=== PATIENT | female | born 1945 | race Caucasian/White ===

== ENCOUNTER 2018-04-12 13:07 | Emergency (ER) | payer OTHER ==
[~2018-04-12] VITALS: Ht 170.2 cm; Wt 100.0 kg
[2018-04-12 13:14] VITALS: Ht 170.2 cm; Wt 100.0 kg
[2018-04-12] MEDS ORDERED: METOPROLOL TART50 MG PO (13:16)
[2018-04-12] MEDS ORDERED: TACROLIMUS ANHYD1 MG PO (13:16)
[2018-04-12] MEDS ORDERED: PREDNISONE10 MG PO (13:17)
[2018-04-12] MEDS ORDERED: MYFORTIC180 MG PO (13:17)
[2018-04-12] MEDS ORDERED: UROCIT-K10 MEQ PO (13:17)
[2018-04-12] MEDS ORDERED: VITAMIN D2000 UNIT PO (13:17)
[2018-04-12] MEDS ORDERED: LEXAPRO10 MG (13:18)
[2018-04-12] MEDS ORDERED: TRAZODONE HCL150 MG PO (13:18)
[2018-04-12] MEDS ORDERED: MAG 6464 MG PO (13:19)
[2018-04-12] MEDS ORDERED: VITAMIN B-6100 MG PO (13:19)
[2018-04-12 13:50] LABS: BASOPHILS 0.1 % (0-2); EOSINOPHILS 0.2 % (0-7); HEMATOCRIT 40.7 % (36.0-48.0); HEMOGLOBIN 13.7 g/dL (12-16); IMMATURE GRANULOCYTES 0.3 % (0-5); LYMPHOCYTES 11.3 % (15-50); MCH 30.1 pg (26.0-34.0); MCHC 33.7 g/dL (31.0-37.0); MCV 89.5 fL (80.0-100.0); MEAN PLATELET VOLUME 11.6 fL (7.4-10.4); MONOCYTES 7.9 % (2-11); NEUTROPHILS 80.2 % (40-80); RBC 4.55 10x6/uL (4.00-5.40); RDW 13.1 % (11.5-14.5); WBC 11.5 10x3/uL (4.8-10.8)
[2018-04-12 14:09] LABS: ALBUMIN 2.9 g/dL (3.4-5.0); ANION GAP 17.9 mmol/L (8-16); BILIRUBIN - TOTAL 0.6 mg/dL (0.2-1.3); CALCIUM 8.2 mg/dL (8.5-10.1); CARBON DIOXIDE 23.9 mmol/L (21.0-32.0); CREATININE - SERUM 6.7 mg/dL (0.6-1.3); POTASSIUM - SERUM 4.8 mmol/L (3.5-5.1); PROTEIN - SERUM 6.6 g/dL (6.4-8.2)
[2018-04-12 14:17] LABS: PLATELET COUNT 142 10x3/uL (130-400)
[2018-04-12 18:19] VITALS: BP 156/65
== END 2018-04-12 18:39 | disposition other institution (70) ==
LOC: D.ER 13:07
PROVIDERS: Family Medicine
DX: E86.0 Dehydration (principal); N17.9 Acute kidney failure, unspecified; Z94.0 Kidney transplant status

== ENCOUNTER → 2018-09-06 08:43 | Outpatient (CLI) | payer OTHER ==
[2018-04-12 13:14] VITALS: BMI 34.5
[~2018-09-06 08:43] MED LIST: LEXAPRO10 MG; MAG 6464 MG PO; METOPROLOL TART50 MG PO; MYFORTIC180 MG PO; PREDNISONE10 MG PO; TACROLIMUS ANHYD1 MG PO; TRAZODONE HCL150 MG PO; UROCIT-K10 MEQ PO; VITAMIN B-6100 MG PO; VITAMIN D2000 UNIT PO
== END | disposition home or self-care (01) ==
LOC: D.US 08-24 07:00
PROVIDERS: ATTEND Registered Nurse Nephrology
DX: R09.89 Other specified symptoms and signs involving the circulatory and respiratory systems (principal)